=== PATIENT | male | born 1930 | race Caucasian/White ===

== ENCOUNTER 2016-06-15 21:25 | Inpatient (IN) | payer MEDICARE, OTHER ==
[~2016-06-15] VITALS: Ht 190.5 cm; Wt 113.0 kg
--- NOTE | 2016-06-15 22:40 | NUR ---
PATIENT ARRIVED TO UNIT VIA STRETCHER ACCOMPANIED BY EMS. HEART MONITOR HOOKED UP TO PATIENT AND SHOWED NS ON RYTHEM, PACED AT 75. SCD'S NOT PLACED DUE TO SKIN INTEGRITY ON LEGS. PIV IN LEFT FOREARM AND RIGHT HAND. BOTH PATENT, WITHOUT REDNESS, AND DRESSING C/D/I. PATIENT IS ALERT AND ORIENTED X4 AMD RESPONDS APPROPRIATELY. SEE ADMISSION ASSESSMENT FOR DETAILS.
[2016-06-15] MEDS ORDERED: COREG 3.1253.125 MG PO (22:47)
[2016-06-15] MEDS ORDERED: BAYER CHEWABLE81 MG PO (22:47)
[2016-06-15] MEDS ORDERED: GENTEAL LUBRICA15 ML EACH EYE (22:48)
[2016-06-15] MEDS ORDERED: FUROSEMIDE40 MG PO (22:48)
[2016-06-15] MEDS ORDERED: TIROSINT50 MCG PO (22:49)
[2016-06-15] MEDS ORDERED: MAG-OXIDE400 MG PO (22:50)
[2016-06-15] MEDS ORDERED: MEXITIL 150 MG150 MG PO (22:51)
[2016-06-15] MEDS ORDERED: METOLAZONE2.5 MG PO (22:51)
[2016-06-15 22:53] VITALS: BP 103/73; BMI 29.8
[2016-06-15] MEDS ORDERED: K-DUR20 MEQ PO (22:53)
[2016-06-15] MEDS ORDERED: VITAMIN B-121000 MCG PO (22:54)
[2016-06-15] MEDS ORDERED: VITAMIN D31000 UNI2 PO (22:55)
[2016-06-15] MEDS ORDERED: COUMADIN1 MG PO (22:58)
[2016-06-15 23:00] VITALS: BP 101/76
--- NOTE | 2016-06-15 23:00 | NUR ---
DR FELDER SPOKEN TO, UPDATE GIVEN, ORDERS RECEIVED.
[2016-06-15] MEDS ORDERED: COUMADIN5 MG PO (23:01)
[2016-06-15 23:07] VITALS: BP 103/73
[2016-06-15 23:24] LABS: BASOPHILS 0.4 % (0.0-2.0); HEMATOCRIT 45.4 % (42.0-54.0); HEMOGLOBIN 14.9 g/dL (13.5-17.5); IMMATURE GRANULOCYTES 0.2 % (0-5); LYMPHOCYTES 24.7 % (15-50); MCH 30.1 pg (26.0-34.0); MCHC 32.8 g/dL (31.0-37.0); MCV 91.7 fL (80.0-100.0); MEAN PLATELET VOLUME 10.8 fL (7.4-10.4); MONOCYTES 14.8 % (2-11); NEUTROPHILS 57.9 % (40-80); PLATELET COUNT 94 10x3/uL (130-400); RBC 4.95 10x6/uL (4.20-6.10); RDW 17.7 % (11.5-14.5); WBC 4.5 10x3/uL (4.8-10.8)
[2016-06-15 23:48] LABS: CALC OSMOLALITY 275 mosm/kg (275-300); CARBON DIOXIDE 27.6 mmol/L (21.0-32.0); CHLORIDE - SERUM 95 mmol/L (98-107); CKMB 1.1 U/L (0.0-3.6); CREATINE KINASE 74 UL (21-232); CREATININE - SERUM 1.3 mg/dL (0.6-1.3); GLUCOSE 138 mg/dL (74-106); MAGNESIUM - SERUM 1.8 mg/dL (1.8-2.4); PHOSPHOROUS 3.2 mg/dL (2.5-4.9); POTASSIUM - SERUM 3.1 mmol/L (3.5-5.1); SODIUM 133 mmol/L (136-145); TROPONIN-I 0.053 ng/mL (0.000-0.060); UREA NITROGEN 35 mg/dL (7-18); eGFR NON AFRICAN AMERICAN 55 mL/min (90-120)
[2016-06-16] VITALS (25 sets, daily range): BP systolic 94–120; BP diastolic 67–80
[2016-06-16] LABS: PLATELET ESTIMATE DECREASED; PLATELET MORPHOLOGY NORMAL PLT MORPH
--- NOTE | 2016-06-16 01:00 | NUR ---
PATIENT RESITNG IN BED WITH EYES CLOSED. VSS, HR PACED AT 75 WITH NORMAL SINUS ON HM. SAT IS 98 WITH 2L O2. WILL CONTINUE TO MONITOR.
--- NOTE | 2016-06-16 03:05 | NUR ---
REASSESSMENT COMPLETE, NO CHANGES FROM PREVIOUS. S1S2 NOTED, HR PACING AT 75. RR 18 AND NON-LABORED. ON 2L NC WITH SAT OF 98. WILL CONTINUE TO MONITOR.
--- NOTE | 2016-06-16 05:00 | NUR ---
PATIENT DENIES NEED AT THIS TIME. VSS, NORMAL SINUS ON MONITOR.
[2016-06-16 05:59] LABS: MAGNESIUM - SERUM 2.3 mg/dL (1.8-2.4); POTASSIUM - SERUM 3.6 mmol/L (3.5-5.1)
[2016-06-16 08:01] LABS: INR 1.86 (0.85-1.17); PROTIME 21.4 SECONDS (11.6-15.0)
--- NOTE | 2016-06-16 13:57 | NUR ---
2320 CM RECEIVED TELEPHONE CALL FROM PRIMARY NURSE STATING PATIENT AND HIS FAMILY WOULD LIKE FOR HIM TO BE TRANSFERED TO HIS OWN PROPAGATOR LABORER, DR KELLER, AT [facility]. CM ADVISED THE NURSE TO ADVISE ATTENDING MD, DR FELDER. DR FELDER STATED PATIENT COULD BE TRANSFERED PER CHARGE NURSE, BRYNN AND PRIMARY NURSE,NYDIA. TC TO [facility]. SPOKE WITH NURSING RADIOLOGICAL HEALTH SPECIALIST. JJ. SHE ADVISED THE MD MUST SPEAK DIRECTLY TO OPERATIONS VOCATIONAL INSTRUCTOR MD, DR JIMENES, THROUGH THE MEDICAL EXCHANGE. CONTACT PHONE NUMBER [phone]. CHARGE NURSE PROVIDED DR FELDER WITH THE INFORMATION. HE IS AWAITING A CALL BACK FROM DR JIMENES. CHART COPIED. CXR ON DISC. COBRA FORM INITIATED. NURSE STATES DR FELDER SAID PATIENT COULD BE TRANSPORTED BY [facility]. TC TO ADVISE NURSING RADIOLOGICAL HEALTH SPECIALIST OF PATIENT'S REQUEST.
--- NOTE | 2016-06-16 14:18 | NUR ---
PATIENT IS A RESIDENT AT [facility] IN [place], [place]. HIS DAUGHTER, SYLVIA DUBOIS, STATED HE IS IN A TOP COLLAR MAKER BED AT [facility]. SYLVIA DUBOIS (POA)- [phone] SHE STATES THE PATIENT CANNOT HAVE ANY INVASIVE PROCEDURES DUE TO THE STATUS OF HIS HEART PER HIS OWN FILM PRODUCER. SHE NOTES PATIENT HAS A ICD. PATIENT WAS TRANSFERED FROM [facility] TO [facility]. [facility] DID NOT HAVE A BED AT THAT TIME.
--- NOTE | 2016-06-16 16:41 | NUR ---
PRIMARY NURSE CALLED DR FELDER REGARDING MD COMMUNICATION. DR JIMENES HAD NOT CONTACTED HIM. HE HAD LEFT A MESSAGE W/ THE EXCHANGE. CM CALLED JJ, NURSING ELECTRICAL CONTROLS ENGINEER, AT [facility] REGARDING ABOVE. SHE HAD NOT HEARD ANYTHING REGARDING MR GTZ. CM ADVISED PRIMARY NURSE TO CALL THE MEDICAL EXCHANGE TO REQUEST THAT THEY RECONTACT DR JIMENES. AWAITING MD TO MD COMMUNICATION AWAITING [facility] DECISION REGARDING ACCEPTANCE.
--- NOTE | 2016-06-16 19:56 | NUR ---
REPORT RECIEVED AND CARE ASSUMED. INITIAL ASSESSMENT COMPLETE, PLEASE SEE FLOW SHEETS FOR DETAILS. PT RESTING COMFORTABLY, DENIES ANY PAIN/NEEDS AT THIS TIME. PPP, LUNG SOUNDS DIMINISHED IN LOWER LOBES, BUT OTHERWISE CLEAR. BOWEL SOUNDS ACTIVE X4 QUADRANTS. PACEMAKER/DIFIBULATER PALPABLE ON UPPER LEFT CHEST, DIFIBULATOR PACING AT 75 BPM. PT STATED THAT DEFIBULATOR KICKS IN AT 75 AND PACEMAKER AT 30. PT HAS URINAL AT BEDSIDE FOR USE. ALERT AND ORIENTED X4. BED LOW AND LOCKED, CALL LIGHT IN REACH, VSS, WILL CONTINUE TO MONITOR.
--- NOTE | 2016-06-16 21:00 | NUR ---
PT SLEEPING, NO S&S OF ACUTE DISTRESS NOTED. RR REGULAR AND UNLABORED. HR 75 AND PACING. VSS ATT, BED LOW AND LOCKED, CALL LIGHT IN REACH, WILL CONTINUE TO MONITOR.
--- NOTE | 2016-06-16 23:00 | NUR ---
REASSESSMENT COMPLETE, PLEASE SEE FLOW SHEETS FOR DETAILS. DENIES PAIN/NEEDS AT THIS TIME. BED LOW AND LOCKED, CALL LIGHT IN REACH, VSS ATT, WILL CONTINUE TO MONITOR.
[2016-06-17] VITALS (41 sets, daily range): BP systolic 98–122; BP diastolic 59–88; Ht 190.5 cm; Wt 113.0 kg
--- NOTE | 2016-06-17 01:00 | NUR ---
PT SLEEPING, NO S&S OF ACUTE DISTRESS NOTED. RR EVEN AND UNLABORED. HR 75. RR 16. BP STABLE. BED LOW AND LOCKED, CALL LIGHT IN REACH. WILL CONTINUE TO MONITOR.
--- NOTE | 2016-06-17 03:00 | NUR ---
REASSESSMENT COMPLETE, PLEASE SEE FLOW SHEETS FOR DETAILS. NO S&S OF ACUTE DISTRESS NOTED. PT USES CALL LIGHT AND URINAL APPROPRIATELY. VSS ATT, BED LOW AND LOCKED, CALL LIGHT IN REACH, WILL CONTINUE TO MONITOR.
[2016-06-17 06:20] LABS: BASOPHILS 0.2 % (0.0-2.0); EOSINOPHILS 1.3 % (0-7); HEMATOCRIT 45.3 % (42.0-54.0); HEMOGLOBIN 14.6 g/dL (13.5-17.5); IMMATURE GRANULOCYTES 0.2 % (0-5); MCH 29.6 pg (26.0-34.0); MCHC 32.2 g/dL (31.0-37.0); MCV 91.7 fL (80.0-100.0); MEAN PLATELET VOLUME 11.4 fL (7.4-10.4); MONOCYTES 13.1 % (2-11); NEUTROPHILS 49.2 % (40-80); PLATELET COUNT 86 10x3/uL (130-400); RBC 4.94 10x6/uL (4.20-6.10); RDW 17.7 % (11.5-14.5); WBC 5.3 10x3/uL (4.8-10.8)
[2016-06-17 06:27] LABS: ANION GAP 14.7 mmol/L (8-16); CALCIUM 8.8 mg/dL (8.5-10.1); CARBON DIOXIDE 24.9 mmol/L (21.0-32.0); CREATININE - SERUM 1.4 mg/dL (0.6-1.3); POTASSIUM - SERUM 3.6 mmol/L (3.5-5.1)
--- NOTE | 2016-06-17 08:00 | NUR ---
SHIFT ASSESSMENT VIA FLOWSHEET, SEE FOR DETAILS. VSS, PACED ON CM.
--- NOTE | 2016-06-17 08:15 | NUR ---
SPOKE WITH [facility], STATES PATIENT SHOULD HAVE A BED AVAILABLE AROUND [phone].
--- NOTE | 2016-06-17 09:15 | NUR ---
PT'S SON IN LAW AT BEDSIDE, UPDATE PROVIDED.
--- NOTE | 2016-06-17 10:58 | NUR ---
Telephone call to CVICU. Spoke W/ Ciro to advise to have ECHO that was taken copied to disc to transfer w/ the patient to [facility].
--- NOTE | 2016-06-17 11:00 | NUR ---
REASSESSMENT VIA FLOWSHEET, SEE FOR DETAILS.
--- NOTE | 2016-06-17 11:10 | NUR ---
PT TO CVICU VIA BED, MONITORS CONNECTED. VSS, PACED ON CM.
--- NOTE | 2016-06-17 14:50 | NUR ---
SPOKE WITH LICENSED OCCUPATIONAL THERAPY ASSISTANT AT [facility], STATES THEY HAVE BEEN "SLAMMED" AND PT UNLIKELY TO TRANSFER TODAY. WILL FOLLOWUP SITUATION CHANGES.
--- NOTE | 2016-06-17 15:00 | NUR ---
SPOKE WITH DR FELDER VIA PHONE, INFORMED OF [facility] SITUATION.
--- NOTE | 2016-06-17 15:00 | NUR ---
REASSESSMENT VIA FLOWSHEET, SEE FOR DETAILS. VSS, PACED ON CM.
--- NOTE | 2016-06-17 19:30 | NUR ---
REC'D TO CARE, SEE FLATWORK ASSEMBLER. PT AWAKE, ORIENTED, NO SIGN OF DISTRESS. VSS. C/L IN USE. CM - PACED. ALARMS ON.
--- NOTE | 2016-06-17 20:33 | NUR ---
ADMIN PO MEDS, PT DENIES NEEDS. VSS.
--- NOTE | 2016-06-17 21:12 | NUR ---
PRN CHLORASEPTIC SPRAY PROVIDED PER PT REQUEST.
--- NOTE | 2016-06-17 23:13 | NUR ---
REASSESSMENT PER FLOWSHEET, NO ACUTE CHANGES. PT AWAKENS EASILY, DENIES SOB OR NEEDS. VSS. C/L IN REACH.
--- NOTE | 2016-06-17 23:49 | NUR ---
GIVEN CHICKEN BROTH PER REQUEST.
[2016-06-18] VITALS (26 sets, daily range): BP systolic 90–125; BP diastolic 52–74
--- NOTE | 2016-06-18 01:15 | NUR ---
PT RESTING AT THIS TIME, NO SIGN OF DISTRESS.
--- NOTE | 2016-06-18 03:21 | NUR ---
REASSESSMENT PER FLOWSHEET, NO ACUTE CHANGES. PT DENIES NEEDS. FREQUENT HACKING COUGH NOTED - USING CHLORASEPTIC SPRAY NEEDED. C/L IN REACH.
--- NOTE | 2016-06-18 06:00 | NUR ---
NO VISITORS. PT REPOSITIONED UP IN BED FOR COMFORT. HEELS BRIDGED.
--- NOTE | 2016-06-18 07:00 | NUR ---
ASSUMED CARE OF PT. PT AWAKE AND CONVERSANT AT THIS TIME. VOICES NO COMPLAINTS EXCEPT HAVING PRODUCTIVE COUGH. MULTIPLE TISSUES ON BEDSIDE TABLE AND ON FLOOR AT BEDSIDE. BREAKFAST TRAY PROVIDED.
[2016-06-18 07:07] LABS: BASOPHILS 0.1 % (0.0-2.0); EOSINOPHILS 0.6 % (0-7); HEMATOCRIT 45.8 % (42.0-54.0); HEMOGLOBIN 14.9 g/dL (13.5-17.5); IMMATURE GRANULOCYTES 0.2 % (0-5); LYMPHOCYTES 16.9 % (15-50); MCHC 32.5 g/dL (31.0-37.0); MCV 92.2 fL (80.0-100.0); MEAN PLATELET VOLUME 11.1 fL (7.4-10.4); MONOCYTES 11.4 % (2-11); NEUTROPHILS 70.8 % (40-80); PLATELET COUNT 94 10x3/uL (130-400); RBC 4.97 10x6/uL (4.20-6.10); RDW 17.9 % (11.5-14.5)
[2016-06-18 07:10] LABS: WBC 8.4 10x3/uL (4.8-10.8)
[2016-06-18 07:17] LABS: ANION GAP 12.9 mmol/L (8-16); CALCIUM 8.8 mg/dL (8.5-10.1); CARBON DIOXIDE 27.2 mmol/L (21.0-32.0); CREATININE - SERUM 1.3 mg/dL (0.6-1.3); MAGNESIUM - SERUM 1.8 mg/dL (1.8-2.4); POTASSIUM - SERUM 3.1 mmol/L (3.5-5.1)
--- NOTE | 2016-06-18 08:58 | NUR ---
CALLED AND SPOKE WITH WAN WITH WOUND CARE. ASKED HER TO COME TAKE A LOOK AT PATIENT'S LOWER RIGHT LEG. HE STATES THAT IT HAS NOT BEEN REDRESSED SINCE FRIDAY BEFORE LAST. DRESSING IS USUALLY CHANGED ONCE A WEEK. DR FELDER HAS BEEN IN TO SEE PATIENT. WANTS AMIODARONE DRIP STOPPED AND PO MEDICATION STARTED.
--- NOTE | 2016-06-18 09:10 | NUR ---
WOUND CARE NURSE HAS BEEN IN TO SEE PATIENT. DRESSING REMOVED. WOUND BEING LEFT OPEN TO AIR, ONLY A 1CM SCAB AT UPPER PART OF LOWER LEG IS REMAINING EVIDENCE OF WOUND. NO WEEPING, NO REDNESS.
--- NOTE | 2016-06-18 09:53 | NUR ---
WOUND CARE CONSULT: Pt states he goes to a wound clinic in [place] once/week for dressing changes to his right lower leg. He says he has "poor circulation". Noted on assessment the dressing to right lower leg is an unna boot. After removal noted a silver foam dressing on 2 areas where pt states the wounds were. The wounds are healed at this time. Right lower leg is discolored/hyperpigmented/brownish purple. No edema, no drainage. Will leave Unna boot off for now. Instructed pt and primary nurse to notify wound care if edema, discomfort, drainage is noted. Both voiced understanding. Wound care will continue to monitor.
--- NOTE | 2016-06-18 10:30 | NUR ---
PT SLEEPING AT THIS TIME. NO DISTRESS NOTED.
--- NOTE | 2016-06-18 14:16 | NUR ---
PT SITTING UP IN BED. HAS VOIDED 350ML OF CONCENTRATED URINE.
--- NOTE | 2016-06-18 14:52 | NUR ---
PT SON IN LAW ST[place] AT BEDSIDE.
--- NOTE | 2016-06-18 15:27 | EC ---
PATIENT:JAVED GTZ DATE OF SERVICE: 06/15/16 SEX: M MEDICAL RECORD: [id number] DATE OF : [birth year] LOCATION:[place] [address] AGE OF PATIENT: 85 ADMISSION DATE: 06/15/16 REFERRING PHYSICIAN: INTERPRETING PHYSICIAN: ZBIGNIEW DAVIS M.D. ECHOCARDIOGRAM REPORT ECHO CHARGES 4 ECHO COMPLETE CLINICAL DIAGNOSIS: CMP ECHOCARDIOGRAPHIC MEASUREMENTS (adult normal given) AC root (d.<3.7cm) 3.4 LV Septum d (<1.2 cm> 1.2 Valve Excursion 0.9 LV Septum (systole) 1.8 Left Atria (s.<4.0cm> 4.1 LVPW d(<1.2cm) 1.3 RV (d.<2.3cm) 4.6 LVPW (sytole) 1.7 LV diastole(<5.6CM) 7.3 MV E-F(>70mm/sec) LV systole 5.8 LVOT Diameter 2.3 MV exc.(>10mm) Est.ejection fraction (50-75%) Pericardial Effusion N DOPPLER: LVIT A E 130 LA RVSP 25.3 LVOT 54.0 AOP1/2T Asc. Ao 108 RVOT 55.0 RA PA 64.0 AV Gradient Peak 4.7 AV Mean 2.1 AV Area 2.1 MV Gradient Peak 6.4 MV Mean 2.0 MV Area COMMENTS: Blindstitch Machine Operator: Quinn VIEIRAOE End Worker:Michelle Davis TAPE# PACS DATE OF SERVICE: 06/16/2016 INDICATION: Cardiomyopathy. DESCRIPTION: Left ventricle is severely dilated. There is severe LV dysfunction noted. There is global hypokinesis present. Estimated ejection fraction is in the order 15% to 20%. Mitral valve is structurally normal. There is moderate regurgitation seen. Left atrium is mildly dilated. However, the leaflets are slightly thickened. There is trivial insufficiency seen. Right ventricle is moderately dilated. Tricuspid valve is structurally normal. ECHOCARDIOGRAM REPORT [id number] JAVED GTZ There is moderate regurgitation seen. Right atrium is mildly dilated. There is no pericardial effusion noted. IMPRESSION: 1. 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 2. Moderate mitral regurgitation. 3. Moderate tricuspid regurgitation. TRANSINT:[id number] Voice Confirmation ID: [id number] DOCUMENT ID: [id number] ZBIGNIEW DAVIS M.D. at 1527 CC: [id number] DICTATION DATE: 06/17/16837 EMAIL CAMPAIGN SPECIALIST: 06/17/16 1015 ADM IN [place] [id number] [place] [address]
--- NOTE | 2016-06-18 17:15 | NUR ---
PT REQUESTED BROTH. ONLY ATE ABOUT 10% OF DINNER. SAYS "JUST NOT HUNGRY"
--- NOTE | 2016-06-18 19:20 | NUR ---
REC'D TO CARE, MEDICAL EQUIPMENT REPAIR TECHNICIAN PER FLOWSHEET. PT AWAKE AND ANSWERS QUESTIONS APPROP. VSS. L ARM PIV LEAKING - D/C'D INTACT. IVF INFUSING NOW TO R HAND WITHOUT DIFFICULTY. CM - PACED, L PPM/DEFIB NOTED. ALARMS ON AND C/L IN REACH.
--- NOTE | 2016-06-18 20:30 | NUR ---
PT SPILLED URINAL. COMPLETE BATH AND LINEN CHANGE DONE. BARRIER CREAM APPLIED TO REDDEDED BUTTOCK/CRACK. MELISA-CARE, BACK CARE DONE. LOTION TO DRY SKIN PER PT REQUEST. PT BRUSHED HIS TEETH, PARTIALS REMOVED AND CLEANED. FRESH WATER AT BS, C/L IN REACH AND ALARMS ON.
--- NOTE | 2016-06-18 21:15 | NUR ---
NO VISITORS, PT RESTING QUIETLY. CM - WITH OCC RUNS OF VTACH NOTED, PT WITH HX OF THIS. ASYMPTOMATIC. WILL CONT CLOSE MONITORING.
--- NOTE | 2016-06-18 21:30 | NUR ---
DR. HURLEY PAGED AND NOTIFIED OF RUNS OF VTACH, PT DENIES CP OR INCREASED SOB. NEW ORDERS REC'D.
--- NOTE | 2016-06-18 21:45 | NUR ---
AT THIS TIME, NO FURTHER LONG RUNS OF VTACH, OCC PVC. PT RESTING QUIETLY.
--- NOTE | 2016-06-18 22:35 | NUR ---
K+ 3.4 - COVERAGE PER ELECT PROTOCOL. CM - PACED AT 75 WITH OCC PVC.
[2016-06-19] VITALS (15 sets, daily range): BP systolic 105–121; BP diastolic 64–76
--- NOTE | 2016-06-19 01:16 | NUR ---
PT RESTS FOR SHORT PERIODS AT A TIME. REPOSITIONED UP IN BED FOR COMFORT. ALARMS ON. VSS.
--- NOTE | 2016-06-19 03:05 | NUR ---
REASSESSMENT PER FLOWSHEET, NO ACUTE CHANGES. PT AWAKENS EASILY, DENIES NEEDS. VSS. C/L IN REACH.
--- NOTE | 2016-06-19 04:51 | NUR ---
RESTING WITH EYES CLOSED, VSS. CM - PACED WITH NO ECTOPY NOTED.
[2016-06-19 05:49] LABS: BASOPHILS 0.1 % (0.0-2.0); EOSINOPHILS 0.3 % (0-7); HEMATOCRIT 45.5 % (42.0-54.0); HEMOGLOBIN 14.7 g/dL (13.5-17.5); IMMATURE GRANULOCYTES 0.3 % (0-5); LYMPHOCYTES 21.6 % (15-50); MCH 29.7 pg (26.0-34.0); MCHC 32.3 g/dL (31.0-37.0); MCV 91.9 fL (80.0-100.0); MEAN PLATELET VOLUME 11.3 fL (7.4-10.4); MONOCYTES 13.1 % (2-11); NEUTROPHILS 64.6 % (40-80); PLATELET COUNT 91 10x3/uL (130-400); RBC 4.95 10x6/uL (4.20-6.10); RDW 17.9 % (11.5-14.5); WBC 7.6 10x3/uL (4.8-10.8)
[2016-06-19 06:04] LABS: ANION GAP 13.4 mmol/L (8-16); CALCIUM 8.8 mg/dL (8.5-10.1); CARBON DIOXIDE 26.4 mmol/L (21.0-32.0); CREATININE - SERUM 1.2 mg/dL (0.6-1.3); MAGNESIUM - SERUM 1.9 mg/dL (1.8-2.4); PHOSPHOROUS 2.5 mg/dL (2.5-4.9); POTASSIUM - SERUM 3.8 mmol/L (3.5-5.1)
[2016-06-19 06:14] LABS: INR 2.56 (0.85-1.17); PROTIME 27.7 SECONDS (11.6-15.0)
--- NOTE | 2016-06-19 07:14 | NUR ---
ASSUMED CARE OF PATIENT. PT SLEEPING AT THIS TIME. NO DISTRESS NOTED. SEE FLOW SHEET FOR ASSESSMENT FINDINGS.
--- NOTE | 2016-06-19 08:00 | NUR ---
LATE ENTRY FROM 06/18/16 0800 AM: CM WAS NOTIFIED THAT PATIENT HAS REQUESTED TRANSFER TO [facility] IN [place]. PT STATING THAT HIS PRIMARY REHABILITATION SERVICES COUNSELOR IS DR KELLER AND THAT HE WOULD LIKE TO BE TRANSFERRED THERE FOR DR KELLER TO CARE FOR HIM. AIKLAH PLACED CALL TO JOHN Yoder, ENERGY TRADING ANALYST, TO DISCUSS PT'S REQUEST FOR TRANSFER. JOHN WAS AWARE OF REQUEST AND STATED HE WAS UNSURE WHAT THE STATUS WAS ON THE TRANSFER. AKILAH REQUESTED TO GET ADMINISTRATIVE APPROVAL FROM ENERGY TRADING ANALYST FOR ACUTE-ACUTE TRANSFER. JOHN SPOKE WITH MIHAELA CAIN AND SCHEDULE CHECKER AIR INTELLIGENCE SPECIALIST WHO GAVE ADMINISTRATIVE APPROVAL FOR PT REQUESTED ACUTE TRANSFER TO [facility]. AKILAH PLACED CALL TO [facility] AND SPOKE TO SHAHZAD, ENERGY TRADING ANALYST, WHO INFORMED THAT PT HAD BEEN ACCEPTED BY DR KELLER FOR TRANSFER, BUT THAT THEY CURRENLTY HAD NO BEDS AVAILABLE. SHAHZAD INFORMED THAT HE WOULD EITHER CALL CM OR PT'S PRIMARY RN IF A BED BECAME AVAILABLE. AKILAH INFORMED JOHN OF BED STATUS AND WILL AWAIT BED AVAILABILITY. AKILAH WILL FOLLOW AND ASSIST NEEDED.
--- NOTE | 2016-06-19 10:06 | NUR ---
NUTRITION MONITORING & EVAL PT VISIT. DIET CHANGED TO REG SECONDARY TO STAFF REPORTS PT WITH POOR PO INTAKE. ASSISTED WITH MENU SELECTIONS. NOTIFIED DIET OFFICE. RD FOLLOWING
--- NOTE | 2016-06-19 12:10 | NUR ---
PT HAS EATEN LUNCH. ATE ABOUT 40%. DRANK ALL OF ENSURE. SON IN LAW AT BEDSIDE.
--- NOTE | 2016-06-19 13:19 | NUR ---
FOUND A DNR ORDER ON PATIENT CHART FROM 2014. ASKED SON-IN-LAW IF THAT WAS SUPPOSED TO BE CARRIED INTO THE HOSPITAL STAY. HE CALLED HIS SYLVIA SINCE SHE IS THE POA, AND SHE SAID THE PATIENT SHOULD HAVE DNR ORDER HERE.
--- NOTE | 2016-06-19 13:51 | NUR ---
Patient Name: JAVED GTZ Admission Status: Urgent Accout number: [id number] Admission Date: 06-15-2016 : 1929 Admission Diagnosis: Attending: ROSALES Current LOS: 4 Anticipated DC Date: 06-19-2016 Planned Disposition: Other Type of Facility--[facility] Primary Insurance: MEDICARE A & B Is the patient Alert and Oriented? Yes * How many steps to enter\exit or inside your home? none * PCP DR LASHON COHEN * Pharmacy [facility] OR [facility] * Preadmission Environment Senior Process Engineer [facility] * Facility Name [facility] IN [place] * ADLs Partial Dependent * Partial ADLs (Assistance needed) Ambulation Medication Management * Equipment Rolling Walker Wheelchair * Other Equipment ALL NEEDED DME EQUIPMENT PROVIDED BY [facility] * List name and contact numbers for known caregivers / representatives who currently or will assist patient after discharge: SYLVIA DUBOIS, DTR, REBEKA DUBOIS, SON IN LAW, * Community resources currently utilized None * Additional services required to return to the preadmission environment? Yes * Can the patient safely return to the preadmission environment? Yes * Has this patient been hospitalized within the prior 30 days at any hospital? No Discharge Planning Comments: CM MET WITH PATIENT TO ASSESS DC PLAN/NEEDS. PT CONTINUES TO REQUEST TRANSFER TO [facility] WHERE HIS PRIMARY DATA ENTRY ANALYST AND PARIMUTUEL CASHIER ARE LOCATED. HE STATED THAT HE RESIDES AT [facility] IN [place] AND HAS LIVED THERE FOR THE LAST TWO YEARS. HE IS IN LONG-TERM CARE THERE AND PLANS TO RETURN TO [facility] AT DISCHARGE. HE STATED HE TYPICALLY USES [facility] FOR TRANSPORTATION. HE STATED HE TYPICALLY AMBULATES WITH WHEELCHAIR OR WHEELED WALKER. HE VOICED NO DC NEEDS AT THIS TIME, OTHER THAN WANTING TO TRANSFER TO [facility]. CM INFORMED HIM OF TRANSFER STATUS AND THAT CM WILL UPDATE HIM WHEN BED BECOMES AVAILABLE. DC IMM SIGNED BY PT AND PLACED IN CHART. CM WILL FOLLOW AND ASSIST NEEDED. Supervisor Claims: Trice Wells RN, CM
--- NOTE | 2016-06-19 14:12 | NUR ---
MAYURI PAULINO RN WITH [facility] HAS CALLED TO GET TRANSFER BACK FORM FILLED OUT. HAVE FAXED TO HER. SHE CALLED ME BACK TO GET REPORT ON PATIENT. PT DOES NOT HAVE AN ASSIGNED BED AT THIS TIME. HE WILL TRANSFER BY AMBULANCE AND COME THROUGH ER ENTRY AND WILL BE GIVEN A BED UPON ARRIVAL. SON IN LAW JOSSUE HAS BEEN AT BEDSIDE AND PROVIDED SIGNATURE FOR TRANSPORT.
--- NOTE | 2016-06-19 14:50 | NUR ---
SPOKE WITH WENDY AT [facility]. TRANSPORTATION ARRANGED FOR PATIENT TO GO TO [facility].
--- NOTE | 2016-06-19 15:38 | NUR ---
PT PICKED UP BY EMS.
--- NOTE | 2016-06-19 15:41 | NUR ---
LEFT VOICE MESSAGE ON MAYURI PAULINO VOICE MAIL THAT PATIENT HAS LEFT [facility]. [phone]
== END 2016-06-19 15:42 | disposition short-term general hospital (02) | DRG 308 ==
LOC: D.ICU 21:25 → D.CVICU 22:41
PROVIDERS: ADMIT Internal Medicine Cardiovascular Disease
DX: I47.2 Ventricular tachycardia (principal); I50.21 Acute systolic (congestive) heart failure; I42.9 Cardiomyopathy, unspecified; I48.91 Unspecified atrial fibrillation; I11.0 Hypertensive heart disease with heart failure; I25.10 Atherosclerotic heart disease of native coronary artery without angina pectoris; Z95.810 Presence of automatic (implantable) cardiac defibrillator; E87.6 Hypokalemia